=== PATIENT | male | born 1980 | race Caucasian/White ===

== ENCOUNTER 2017-02-12 08:10 | Outpatient (CLI) | payer BC ==
[~2017-02-12] VITALS: Ht 177.8 cm; Wt 90.9 kg
[2017-02-12] VITALS (10 sets, daily range): BP systolic 114–134; BP diastolic 72–86
[~2017-02-12 08:10] MED LIST: ACHD5005 PO; CRS350T PO; CYCL10TA9 PO; DIPH-424 PO; HYDR-2941 PO; HYDR-3720 PO; HYDR1TAB PO; HYDR1TAB8 OP; IBP800T PO; MELO7.5T PO; METH4TAB PO; NAPR550T PO; OXYC-12 PO; PRD20T PO; PRD50T PO; SULF1TAB38 PO; ZLP10T PO
[2017-02-12 09:01] LABS: BASOPHILS % (AUTO) 0 % (0-10); EOSINOPHILS # (AUTO) 0.2 10^3/uL (0.0-0.3); EOSINOPHILS % (AUTO) 2 % (0-10); LYMPHOCYTES # (AUTO) 2.2 X 10^3 (1.0-4.0); LYMPHOCYTES % (AUTO) 31 % (12-44); MEAN CORPUSCULAR HEMOGLOBIN 31 PG (25-34); MEAN CORPUSCULAR HGB CONC 36 G/DL (32-36); MEAN CORPUSCULAR VOLUME 87 FL (80-99); MEAN PLATELET VOLUME 10.2 FL (7.4-10.4); MONOCYTES # (AUTO) 0.6 X 10^3 (0.0-1.0); MONOCYTES % (AUTO) 9 % (0-12); NEUTROPHILS # (AUTO) 4.1 X 10^3 (1.8-7.8); NEUTROPHILS % (AUTO) 58 % (42-75); PLATELET COUNT 233 10^3/uL (130-400); RED BLOOD COUNT 4.88 10^6/uL (4.35-5.85); RED CELL DISTRIBUTION WIDTH 12.7 % (10.0-14.5); WHITE BLOOD COUNT 7.1 10^3/uL (4.3-11.0)
[2017-02-12] MEDS ORDERED: HYDROcodone/APAP 5 MG/325 MG (LORTAB) TAB ONE (11:27)
[2017-02-12] MEDS ORDERED: HYDROcodone/APAP 5 MG/325 MG (LORTAB) TAB PO ONE (11:30)
[2017-02-12] MEDS ORDERED: IOHEXOL 240 MGI/ML 20 ML (OMNIPAQUE) VIAL IV ONE (11:30)
--- NOTE | 2017-02-12 11:53 | Diagnostic Imaging Report ---
EXAMINATION: Fluoroscopic guided lumbar puncture with intrathecal contrast injection and myelogram performed. INDICATION: Back pain. FLUOROSCOPY TIME: 21 seconds CONSENT: Informed consent was obtained from the patient. The risks, benefits, potential complications and alternatives were reviewed and all questions answered to the patient's satisfaction. PROCEDURE: After sterile preparation and draping, 1% lidocaine was utilized for local anesthesia. Under fluoroscopic guidance, a 22-gauge spinal needle is advanced into the spinal canal at the level of L5/S1. Clear CSF is obtained. Under fluoroscopic visualization, 12 cc of intrathecal Omnipaque-240 is administered into the thecal sac. The patient tolerated the procedure well with no immediate complications. FINDINGS: Myelogram images demonstrate opacification of the thecal sac. There is anterior fusion hardware seen at L5/S1 level. IMPRESSION: Successful fluoroscopic guided intrathecal contrast injection with myelogram obtained and a lumbar CT myelogram to follow. Dictated by: Dictated on workstation # [id number]
[2017-02-12] MEDS ORDERED: HYDR-3812 PO (14:00)
[2017-02-12] MEDS ORDERED: DOXY25TA46 PO (14:00)
--- NOTE | 2017-02-12 15:42 | Pre-Procedure Progress Note ---
Pre-Procedure Progress Note H&P Reviewed The H&P was reviewed, patient examined and no changes noted. Date H&P Reviewed: Feb 12, 2017 Time H&P Reviewed: 09:00 Pre-Procedure Diagnosis: back pain COLBY JONES MD Feb 12, 2017 15:42
--- NOTE | 2017-02-12 17:01 | Diagnostic Imaging Report ---
PROCEDURE: CT lumbar spine with intrathecal contrast. TECHNIQUE: Multiple contiguous axial images were obtained through the lumbar spine after the intrathecal administration of contrast. Sagittal and coronal reformations were then performed. INDICATION: Back pain. FINDINGS: There is anterior fusion plate and screws along the L5/S1 level with osseous bridging around the disc cage across the interbody space seen. The posterior elements and facet joints are not fused. The alignment at the posterior spinal line is satisfactory. There is no pars defect. No spondylolisthesis at any level. There is no disc height loss. No posterior osteophytes are seen. There are subchondral cysts along the inferior endplate of L3 level probably related to a Schmorl's node. Small Schmorl's nodes along the inferior endplate of L2 is also seen. There is good opacification of the thecal sac. The cauda equina and the conus medullaris appear grossly unremarkable. L4/5: There is a mild disc bulge resulting in mild spinal canal stenosis reducing the AP dimension of the central canal to 8.5 mm. There is mild to moderate facet arthropathy. No significant lateral recess stenosis. L5/S1: There is solid fusion with no spinal canal stenosis. There is no foraminal narrowing seen at any level. IMPRESSION: 1. There is a diffuse disc bulge at L4/5 level resulting in mild spinal canal stenosis. 2. There is solid fusion of L5 and S1 vertebral bodies. Dictated by: Dictated on workstation # [id number]
== END 2017-02-12 15:00 ==
LOC: RAD 08:10 → SURG 12:45 → RAD 15:00
PROVIDERS: ATTEND Family Medicine
DX: M51.16 Intervertebral disc disorders with radiculopathy, lumbar region (principal); M48.06 Spinal stenosis, lumbar region; Z98.1 Arthrodesis status
CPT/HCPCS: 36415; 62284; 72132; 72265; 77002; 85025; 85610; 85730

== ENCOUNTER → 2017-07-01 | Outpatient (CLI) | payer BC ==
[~2017-07-01] VITALS: Ht 177.8 cm; Wt 90.9 kg
[~2017-07-01] MED LIST changes: +DOXY25TA46 PO; +HYDR-3812 PO; +HYDR-3816 PO
== END ==
LOC: PREOP 15:01
PROVIDERS: ATTEND Orthopaedic Surgery Orthopaedic Surgery of the Spine
DX: Z01.818 Encounter for other preprocedural examination (principal); M54.5 Low back pain

== ENCOUNTER 2017-07-03 11:17 | Day surgery (SDC) | payer BC ==
[~2017-07-03] VITALS: Ht 177.8 cm; Wt 90.9 kg
[2017-07-03 11:20] VITALS: BP 137/80
[2017-07-03] MEDS ORDERED: ceFAZolin 2 GM/50 ML NS 50 ML IV ONE (11:30)
[2017-07-03] MEDS: LACTATED RINGERS 1,000 ML IV PRN ×2 (12:38→15:10)
[2017-07-03] MEDS ORDERED: ONDANSETRON 4 MG/2 ML (SDV) Z0FRAN IV ONE (13:15)
[2017-07-03] MEDS ORDERED: SCOPOLAMINE 1.5 MG (TRANSDERM-SCOP) PATCH TOP ONE (13:15)
[2017-07-03] MEDS ORDERED: FAMOTIDINE 20MG/2ML IV (PEPCID) IV ONE (13:15)
[2017-07-03] MEDS ORDERED: GENTAMICIN 40 MG/ML 2 ML INJ SDV ONE (13:35)
[2017-07-03] MEDS ORDERED: BUP/EPI 0.5% 1:200,000 (MARCAINE) 10ML VIAL IJ ONE (13:35)
[2017-07-03] MEDS ORDERED: VANCOMYCIN 1000 MG/VIAL ONE (13:35)
[2017-07-03] MEDS ORDERED: ROCURONIUM 50 MG/5 ML (ZEMURON) VIAL IV ONE (13:46)
[2017-07-03] MEDS ORDERED: proPOfol 200 MG/20 ML (DIPRIVAN) VIAL IV ONE (13:46)
[2017-07-03] MEDS ORDERED: MIDAZOLAM 2 MG/2 ML (VERSED) VIAL ONE (13:46)
[2017-07-03] MEDS ORDERED: fentaNYL INJECTION 100 MCG/2 ML AMP ONE (13:47)
[2017-07-03] MEDS ORDERED: ceFAZolin 2 GM/NS 50 ML IV ONE (14:00)
[2017-07-03] MEDS ORDERED: SEVOFLURANE (ULTANE) 15 ML INHAL SOLN ONE (14:28)
[2017-07-03] MEDS ORDERED: SUGAMMADEX 100 MG/ML 5 ML (BRIDION) IV ONE (14:30)
--- NOTE | 2017-07-03 14:33 | Progress Note-Post Operative ---
Post-Operative Progess Note Surgeon (s)/Foundation Stage Teacher (s) Surgeon LAURIE CAMACHO MD Foundation Stage Teacher: DANIELE Ayala Pre-Operative Diagnosis LUMBAGO, Battery End of Life Post-Operative Diagnosis Battery End Of Life Lumbago Procedure & Operative Findings Date of Procedure 07/03/17 Procedure Performed/Findings Battery Exchange for SCS Anesthesia Type GETA Estimated Blood Loss Estimated blood loss (mL): min Specimens/Packing Specimens Removed none LAURIE CAMACHO MD Jul 03, 2017 2:33 pm
[2017-07-03] MEDS ORDERED: MEPERIDINE (DEMEROL) INJ 50 MG/ML ONE (14:47)
[2017-07-03] MEDS ORDERED: HYDROmorphone (DILAUDID) 2 MG/ML VIAL ONE (14:47)
[2017-07-03] MEDS: MEPERIDINE (DEMEROL) INJ 50 MG/ML IVP PRN ×2 (14:49→14:53)
[2017-07-03] MEDS: HYDROmorphone (DILAUDID) 2 MG/ML VIAL IVP PRN ×4 (15:00→15:30)
[2017-07-03] MEDS ORDERED: PROMETHAZINE INJ 25 MG/ML (PHENERGAN) AMP IVP PRN (15:00)
[2017-07-03] MEDS ORDERED: ONDANSETRON 4 MG/2 ML (SDV) Z0FRAN IVP PRN (15:00)
[2017-07-03] MEDS ORDERED: morphine INJ 10 MG/ML 1ML (SYR OR VIAL) IVP PRN (15:00)
[2017-07-03 15:50] VITALS: BP 131/86
[2017-07-03 16:20] VITALS: BP 129/80
[2017-07-03 16:50] VITALS: BP 118/83
--- NOTE | 2017-07-04 00:30 | OPERATIVE REPORT ---
DATE OF SERVICE: 07/03/2017 PREOPERATIVE DIAGNOSIS: Spinal cord stimulator battery end of life, battery failure. POSTOPERATIVE DIAGNOSIS: Spinal cord stimulator battery end of life, battery failure PROCEDURES PERFORMED: Exchange of spinal cord stimulator battery. DATE AND TIME OF SURGERY: Please see anesthesia record. SURGEON: Ellis Garces MD. COLOR BUFFER: YELITZA Ayala. ROLE OF FLIGHT COMMUNICATIONS OFFICER: Aid in retraction of the procedure and aid in wound closure. ANESTHESIA: General endotracheal. ESTIMATED BLOOD LOSS: Minimal. INTRAVENOUS FLUIDS: Please see anesthesia record. ANTIBIOTICS: Ancef. COMPLICATIONS: None. INDICATIONS FOR PROCEDURE: The patient is a 36-year-old male with previous stimulator several years ago. He has had charging issues at this point. The battery no longer charges and desires exchange of battery. Risks, benefits, alternatives discussed and she elected to proceed with operative treatment. DESCRIPTION OF PROCEDURE: The patient was taken to the preoperative holding area and brought back to the operative suite. After adequate induction of general anesthesia and preoperative antibiotics, placed prone on the Lalit table care with padding to all extremities, sterilely prepped and draped posterior lumbar spine. The battery site was opened, the old battery was removed, new battery was placed and it was functioning well. Wound was closed in layers. The patient transferred to recovery room in stable condition having tolerated the procedure well. Job ID: [id number] DocumentID: [id number] Dictated Date: 07/03/2017 14:32:06 Drum Plater Date: 07/04/2017 00:29:56 Dictated By: ELLIS GARCES MD
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
--- OUTSIDE RECORDS SUMMARY | 2017-07-04 09:36 | XMS REPORT | Clinical Summary ---
Author Author MD Nasrin, Kennedy [facility], [facility] Address [address] [place] [address] Phone Care Team Providers Care Director Information Security Name Role Phone MD Alexandra Ryan Unavailable Conditions or Problems Problem Name Problem Code Onset Date Status Entry Date Provider Comment Standard Description Annotate Spinal stenosis, lumbar region without neurogenic claudication 72244256 ( SNOMED CT) Active Shelli Leap Spinal stenosis of lumbar region Spinal stenosis, lumbar 29044753 (SNOMED CT) Active Nahed Kwon [facility] Spinal stenosis of lumbar region Medications Medication Instructions Start Date Stop Date Generic Name NDC Provider HYDROCODONE-ACETAMINOPHEN 7.5-325 MG TABS HYDROCODONE-ACETAMINOPHEN 34139006804 Evon Rojo CNA UNISOM TABS DOXYLAMINE SUCCINATE (SLEEP) TABS 32431253298 Evon Rojo CNA CLOBETASOL PROPIONATE LIQD CLOBETASOL PROPIONATE LIQD 61795563575 Evon Rojo CNA MOTRIN IB 800 MG [...] LUMBAR SPINE: REVIEW EMG/NCV. 05/15/17 LYUBOVSEBASTIÁNWALTER DIET BABY SITTER yes Dietary management education, guidance , and counseling (procedure) SMOK STATUS Former smoker Tobacco smoking status NHIS CARD RSK GRP No cardiac risk group Plan of Care Type Date Detail Pending order SEND LETTER TO REF MD Procedures Code Procedure Name Date Entry Date CPT-41602 Lumbar Spine 4-6 Views Vital Signs Date [...] 8302-2 Encounters Code Encounter Date Provider Facility CPT-78785 27056- [facility] Level III Kennedy Alexandra MD [facility], [facility] CPT-43022 96263- New Level III Kennedy Alexandra MD [facility], [facility] Social History Concept Description Observation Name Observation Value Units Start Date Alcohol use ETOH USE Yes Former smoker SMOK STATUS Former smoker Alcohol use ETOH USE Yes Former smoker SMOK STATUS Former smoker
== END 2017-07-03 16:50 | disposition home or self-care (01) ==
LOC: SDC 11:17
PROVIDERS: ATTEND Orthopaedic Surgery Orthopaedic Surgery of the Spine
DX: T85.199A Other mechanical complication of other implanted electronic stimulator of nervous system, initial encounter (principal); Z79.899 Other long term (current) drug therapy; Z88.1 Allergy status to other antibiotic agents; G62.9 Polyneuropathy, unspecified
CPT/HCPCS: 87081

== ENCOUNTER 2018-04-07 08:14 | Emergency (ER) | payer BC ==
[~2018-04-07] VITALS: Ht 177.8 cm; Wt 93.0 kg
[~2018-04-07 08:14] MED LIST changes: -DOXY25TA46 PO; +HYDR-34 PO; -HYDR-3812 PO; -HYDR-3816 PO; +UNISOM25 M1 PO
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
--- OUTSIDE RECORDS SUMMARY | 2018-04-07 08:29 | XMS REPORT | Continuity of Care Document ---
Author Author [facility] Organization [facility] Address Unknown Phone Unavailable Allergies Active Description Code Type Severity Reaction Onset Reported/Identified Relationship to Patient Clinical Status Yes NKDA N/A N/A Yes VANCOMYCIN (BULK) MILD SWOLLEN LIPS Yes vancomycin [id number] Drug Allergy Moderate facial swelling 07/01/2017 Medications Medication Packaging Start Date Stop Date Route Dosage Sig KETOROLAC VIAL INJ 60 MG/2CC (TORADOL VIAL) MG 01/25/2017 01/25/2017 [id number] Problems Date Dx Coded Attending Type Code [...] MD Ot 349.0 LUMBAR PUNCTURE REACTION 02/14/2014 MARIA G CRISOSTOMO, LEDA Solorio Ot 784.0 HEADACHE 06/05/2014 Ot 722.4 06/05/2014 [...] GONCALVES DO Ot 722.83 POSTLAMINECT SYND-LUMBAR 01/18/2017 MARYBETHBARON MAGGY VELAZQUEZ Ot 723.0 CERVICAL SPINAL STENOSIS 01/25/2017 Tito Tee 848.8 OTHER SPECIFIED SITES OF SPRAINS AND STRAINS 01/25/2017 Tito Tee S39.012A STRAIN OF MUSCLE, FASCIA AND TENDON OF LOWER BACK, INIT 02/08/2017 Ot 729.5 PAIN IN LIMB 02/08/2017 MAGGY GONCALVES DO Ot 338.4 CHRONIC PAIN SYNDROME 02/08/2017 MAGGY GONCALVES DO Ot 722.52 LUMB/LUMBOSAC DISC DEGEN 02/08/2017 MAGGY GONCALVES DO Ot 722.83 POSTLAMINECT SYND-LUMBAR 02/08/2017 MAGGY GONCALVES DO Ot 723.0 CERVICAL SPINAL STENOSIS 02/12/2017 TAE CRISOSTOMO, MATTHEW Art Ot M48.06 SPINAL STENOSIS, LUMBAR REGION 02/12/2017 TAE CRISOSTOMO, MATTHEW Art Ot M51.16 INTERVERTEBRAL DISC DISORDERS W RADICULO 02/12/2017 TAE CRISOSTOMO, MATTHEW Art Ot Z98.1 ARTHRODESIS STATUS 02/18/2017 MATTHEW STRONG MD Ot M48.06 SPINAL STENOSIS, LUMBAR REGION 02/18/2017 MATTHEW STRONG MD Ot M51.16 INTERVERTEBRAL DISC DISORDERS W RADICULO 02/18/2017 MATTHEW STRONG MD Ot Z98.1 ARTHRODESIS STATUS 02/20/2017 MATTHEW STRONG MD Ot M48.06 SPINAL STENOSIS, LUMBAR REGION 02/20/2017 MATTHEW STRONG MD Ot M51.16 INTERVERTEBRAL DISC DISORDERS W RADICULO 02/20/2017 MATTHEW STRONG MD Ot Z98.1 ARTHRODESIS STATUS 02/20/2017 Ot 729.5 PAIN IN LIMB 02/20/2017 MAGGY GONCALVES DO Ot 338.4 CHRONIC PAIN SYNDROME 02/20/2017 MAGGY GONCALVES DO Ot 722.52 LUMB/LUMBOSAC DISC DEGEN 02/20/2017 MAGGY GONCALVES DO Ot 722.83 POSTLAMINECT SYND-LUMBAR 02/20/2017 MAGGY GONCALVES DO Ot 723.0 CERVICAL SPINAL STENOSIS 02/21/2017 MATTHEW STRONG MD, Ot M48.06 SPINAL STENOSIS, LUMBAR REGION 02/21/2017 MATTHEW STRONG MD, Ot M51.16 INTERVERTEBRAL DISC DISORDERS W RADICULO 02/21/2017 MATTHEW STRONG MD, Ot Z98.1 ARTHRODESIS STATUS 02/23/2017 MATTHEW STRONG MD, Ot M48.06 SPINAL STENOSIS, LUMBAR REGION 02/23/2017 MATTHEW STRONG MD, Ot M51.16 INTERVERTEBRAL DISC DISORDERS W RADICULO 02/23/2017 MATTHEW STRONG MD, Ot Z98.1 ARTHRODESIS STATUS 07/03/2017 LAURIE CAMACHO MD, Ot G62.9 POLYNEUROPATHY, UNSPECIFIED 07/03/2017 LAURIE CAMACHO MD, Ot T85.199A [facility] COMPL OF IMPLNT ELECTRNC STIMULTR O 07/03/2017 LAURIE CAMACHO MD, Ot Z79.899 OTHER LONGTERM (CURRENT) DRUG THERAPY 07/03/2017 LAURIE CAMACHO MD, Ot Z88.1 ALLERGY STATUS TO OTHER ANTIBIOTIC AGENT 07/11/2017 LAURIE CAMACHO MD, Ot M54.5 LOW BACK PAIN 07/11/2017 LAURIE CAMACHO MD, Ot Z01.818 ENCOUNTER FOR OTHER PREPROCEDURAL EXAMIN Procedures There is no data. Results Test [...] poor plasma bycoagulation assay 27 s 24-35 Methicillin resistant Staphylococcus aureus (MRSA) screening culture - 12:25 Methicillin resistant Staphylococcus aureus (MRSA) screening culture NEG NRG Encounters ACCT No. Visit Date/Time Discharge Status Pt. Type Provider Facility Loc./Unit Complaint [id number] 07/03/2017 11:17:00 07/03/2017 16:50:00 DIS Outpatient LAURIE CAMACHO MD [facility] SDC LUMBAGO [id number] 07/01/2017 15:01:00 07/01/2017 23:59:59 CLS Outpatient LAURIE CAMACHO MD [facility] PREOP LUMBAGO [id number] 02/12/2017 08:10:00 02/12/2017 15:00:00 DIS Outpatient MATTHEW STRONG MD [facility] RAD S/P FUSION L4/L5, BULDGING DISC L3/L5 [id number] 02/14/2014 02:46:00 02/14/2014 04:45:00 DIS Emergency LEDA CUMMINS MD [facility] ER MIGRAINE [id number] 02/12/2014 09:58:00 02/12/2014 13:37:00 DIS Emergency CHUCK VIRK MD [facility] ER HEADACHE/DIZZINESS [id number] 09/11/2013 12:19:00 09/11/2013 13:01:00 DIS Emergency WALKER BELL MD [facility] ER BACK PAIN [id number] 08/21/2013 08:24:00 08/21/2013 23:59:59 CLS Outpatient SACHA MAGGY VELAZQUEZ [facility] RAD RADICULOPATHY [id number] 03/15/2013 08:24:00 03/15/2013 10:25:00 DIS Emergency ETHAN GONCALVES MD [facility] ER LOWER BACK PAIN [id number] 01/06/2013 15:00:00 01/06/2013 15:51:00 DIS Emergency ETHAN GONCALVES MD [facility] ER BACK PAIN [id number] 12/07/2012 10:16:00 12/07/2012 14:45:00 DIS Emergency LEDA CUMMINS MD [facility] ER ABCESS ON L GROIN AREA [id number] 09/17/2012 11:18:00 Document Registration [id number] 08/15/2012 09:23:00 Document Registration [id number] 07/29/2012 09:51:00 Document Registration [id number] 02/11/2012 14:11:00 Document Registration [id number] 02/08/2012 17:50:00 Document Registration [id number] 01/28/2012 01:12:00 Document Registration [id number] 09/01/2011 02:01:00 Document Registration [id number] 08/24/2010 10:07:00 Document Registration [id number] 08/21/2017 13:45:00 08/21/2017 23:59:59 CLS Outpatient [facility] [id number] 01/25/2017 08:43:00 01/25/2017 09:46:00 DIS Outpatient [facility] ER [id number] 01/25/2017 09:13:09 Document Registration [id number] 09/13/2017 15:25:23 09/13/2017 23: 59:59 CLS Outpatient [id number] 09/13/2017 15:25:12 09/13/2017 23: 59:59 CLS Outpatient [id number] 09/13/2017 15:24:39 09/13/2017 23: 59:59 CLS Outpatient [id number] 08/15/2017 08:40:35 08/15/2017 23: 59:59 CLS Outpatient [id number] 08/15/2017 08:40:32 08/15/2017 23: 59:59 CLS Outpatient [id number] 08/15/2017 08:40:21 08/15/2017 23: 59:59 CLS Outpatient [id number] 08/15/2017 08:40:16 08/15/2017 23: 59:59 CLS Outpatient [id number] 05/10/2017 08:50:38 05/10/2017 23: 59:59 CLS Outpatient [id number] 05/10/2017 08:50:24 05/10/2017 23: 59:59 CLS Outpatient [id number] 05/07/2017 09:08:11 05/07/2017 23: 59:59 CLS Outpatient [id number] 05/06/2017 15:35:54 05/06/2017 23: 59:59 CLS Outpatient [id number] 05/06/2017 14:35:28 05/06/2017 23: 59:59 CLS Outpatient [id number] 05/06/2017 14:24:54 05/06/2017 23: 59:59 CLS Outpatient [id number] 05/06/2017 14:24:40 05/06/2017 23: 59:59 CLS Outpatient [id number] 05/06/2017 14:23:12 05/06/2017 23: 59:59 CLS Outpatient [id number] 05/06/2017 14:23:11 05/06/2017 23: 59:59 CLS Outpatient [id number] 05/06/2017 14:22:58 05/06/2017 23: 59:59 CLS Outpatient [id number] 05/06/2017 14:21:28 05/06/2017 23: 59:59 CLS Outpatient [id number] 04/23/2017 10:35:13 04/23/2017 23: 59:59 CLS Outpatient [id number] 04/23/2017 10:34:16 04/23/2017 23: 59:59 CLS Outpatient [id number] 04/23/2017 10:34:03 04/23/2017 23: 59:59 CLS Outpatient [id number] 04/23/2017 10:31:36 04/23/2017 23: 59:59 CLS Outpatient [id number] 04/23/2017 10:31:35 04/23/2017 23: 59:59 CLS Outpatient [id number] 04/23/2017 10:31:20 04/23/2017 23: 59:59 CLS Outpatient [id number] 05/06/2017 14:35:00 Document Registration [id number] 05/06/2017 14:32:00 Document Registration
[2018-04-07] MEDS ORDERED: KETOROLAC 30 MG/ML VIAL IVP STA (09:31)
[2018-04-07] MEDS ORDERED: NS IV 1000 ML 1,000 ML IV ONE (09:31)
[2018-04-07 09:37] LABS: BASOPHILS % (AUTO) 0 % (0-10); EOSINOPHILS # (AUTO) 0.1 10^3/uL (0.0-0.3); EOSINOPHILS % (AUTO) 2 % (0-10); HEMATOCRIT 44 % (40-54); HEMOGLOBIN 16.4 G/DL (13.3-17.7); LYMPHOCYTES # (AUTO) 1.8 X 10^3 (1.0-4.0); LYMPHOCYTES % (AUTO) 28 % (12-44); MEAN CORPUSCULAR HEMOGLOBIN 33 PG (25-34); MEAN CORPUSCULAR HGB CONC 37 G/DL (32-36); MEAN CORPUSCULAR VOLUME 89 FL (80-99); MEAN PLATELET VOLUME 10.1 FL (7.4-10.4); MONOCYTES # (AUTO) 0.6 X 10^3 (0.0-1.0); MONOCYTES % (AUTO) 10 % (0-12); NEUTROPHILS # (AUTO) 3.7 X 10^3 (1.8-7.8); NEUTROPHILS % (AUTO) 60 % (42-75); PLATELET COUNT 221 10^3/uL (130-400); RED BLOOD COUNT 4.98 10^6/uL (4.35-5.85); RED CELL DISTRIBUTION WIDTH 12.7 % (10.0-14.5); WHITE BLOOD COUNT 6.2 10^3/uL (4.3-11.0)
[2018-04-07] MEDS ORDERED: ONDANSETRON 4 MG/2 ML (SDV) Z0FRAN IVP ONE (09:45)
--- NOTE | 2018-04-07 09:50 | ED Abdominal Pain ---
General Chief Complaint: Abdominal/GI Problems Stated Complaint: SIDE AND LOWER BACK PAIN Nursing Triage Note: PT STATES LAST NIGHT AROUND 20:00 HE BEGAN TO EXPERIENCE R FLANK PAIN WITH SOME NAUSEA. TODAY IS PRESENTING WITH INCREASED PAIN IN THE SAME LOCATION. Sepsis Screen: No Definite Risk (ETHAN PARADA STUDENT) History of Present Illness Date Seen by Provider: Apr 07, 2018 Time Seen by Provider: 09:10 Initial Comments Will (prefers to go by middle name) is a 37-year old male who presents to the ED this morning with the chief complaint of right flank pain beginning last evening at 20:00 while at rest. Patient describes the pain as constant, sharp, radiating occasionally down to the right groin, and currently rates an 8/10. Patient took 7.5mg of hydrocodone last night and oxycodone this morning, each brought mild temporary symptom resolution before pain intensity resumed. Patient denies previous injury or trauma to his right flank. Patient had two episodes last evening of burning with urination, but denies discharge or hematuria. Patient felt nauseated last evening and this morning. Patient currently has headache and intermittent chills, but denies fever, diaphoresis, abdominal pain, or vomiting. Patient denies personal history of UTI, nephrolithiasis, or other pathology, but has family history of kidney stones. Patient has chronic pedal paresthesias bilaterally since accident and L4 -5 spinal fusion surgery in 2011-. Patient says his acute pain today is unlike any associated pain he's had since spinal injury. Patient regularly takes 7.5mg hydrocodone b.i.d. for back pain, Unisom for sleep, and recently started a new topical skin treatment for his psoriasis. Patient is allergic to vancomycin, smokes about 1/2 ppd of cigarettes, and does not drink alcohol or use illicit drugs. Patient remarks he drinks soda "way too much." Patient works as a huitron/contractor. Patient's PCP is Dr. Strong. Timing/Duration: 12-24 Hours Severity/Quality: Severe, Sharp Location: Flank (right-sided) Radiation: Groin Activities at Onset: Rest Modifying Factors: Improves With Analgesics (7.5mg hydrocodone and oxycodone) Associated Symptoms: No Chest Pain; Fever/Chills (chills; no fever), Headache; No Shortness of Air (ETHAN PARADA STUDENT) Initial Comments Here with complaint of right flank pain that started last night. Describes it as sharp and radiating to the right groin. He is taking his medications and that has not helped. Denies any recent injury. Denies blood in his urine or stool. Timing/Duration: 12-24 Hours Severity/Quality: Moderate, Severe, Sharp Location: Flank (right-sided) Radiation: Groin Associated Symptoms: No Fever/Chills (chills; no fever), No Headache, No Nausea /Vomiting, No Shortness of Air (ETHAN GONCALVES MD) Allergies and Home Medications Allergies Coded Allergies: vancomycin (Unverified Adverse Reaction, Intermediate, facial swelling, itching, 07/01/17) Home Medications Doxylamine Succinate 25 Mg Tablet, 25 MG PO HS, (Reported) Hydrocodone Bit/Acetaminophen 1 Each Tablet, 1 EACH PO BID, (Reported) Patient Home Medication List Home Medication List Reviewed: Yes (ETHAN PARADA) Home Medication List Reviewed: Yes (ETHAN GONCALVES MD) Review of Systems Review of Systems Constitutional: chills; No diaphoresis, No fever EENTM: No Blurred Vision, No Double Vision Respiratory: Denies Cough, Denies Shortness of Air Cardiovascular: Denies Chest Pain, Denies Palpitations Gastrointestinal: Denies Abdominal Pain, Denies Constipated, Denies Diarrhea; Nausea; Denies Vomiting Genitourinary: Burning; Denies Discharge; Flank Pain (right-sided); Denies Hematuria, Denies Pain Musculoskeletal: back pain; No neck pain Skin: other (psoriasis) Psychiatric/Neurological: Paresthesia (pedal, bilaterally, but more pronounced in rt foot) Endocrine: Denies Excessive Sweating, Denies Intolerance to Cold, Denies Intolerance to Heat (ETHAN PARADA STUDENT) Constitutional: see HPI; No fever, No weakness EENTM: No Symptoms Reported Respiratory: No Symptoms Reported (ETHAN GONCALVES MD) All Other Systems Reviewed Negative Unless Noted: Yes (ETHAN GONCALVES MD) Past Bpdemkg-Ztupab-Rsyhmp Hx Past Med/Social Hx: Reviewed Nursing Past Med/Soc Hx (ETHAN GONCALVES MD) Patient Social History Alcohol Use: Denies Use Recreational Drug Use: No Smoking Status: Current Everyday Smoker Type Used: Cigarettes (2 ppd) Former Smoker, Quit: Jul 01, 2013 Recent Foreign Travel: No Contact w/Someone Who Travel: No Recent Infectious Disease Expo: No Recent Hopitalizations: No (ETHAN PARADA) Immunizations Up To Date Date of Pneumonia Vaccine: Aug 15, 2012 Date of Influenza Vaccine: May 15, 2012 (ETHAN PARADA) Seasonal Allergies Seasonal Allergies: Yes (MILD) (ETHAN PARADA) Past Medical History Surgeries: Yes (KNEE, SHOULDER, BACK/neurostimulator, LUMBAR FUSION) Respiratory: No Cardiac: No Neurological: No Reproductive Disorders: No Sexually Transmitted Disease: No HIV/AIDS: No Genitourinary: No Gastrointestinal: No Musculoskeletal: Yes (2011) Arthritis, Back Injury, Chronic Back Pain, Gout Endocrine: No Loss of Vision: Denies Hearing Impairment: Denies Cancer: No Psychosocial: No Integumentary: Yes Psoriasis Blood Disorders: No Adverse Reaction/Blood Tranf: No (N/A) (ETHAN PARADA) Family Medical History Reviewed Nursing Family Hx (ETHAN GONCALVES MD) No Pertinent Family Hx, Cancer, Other Conditions/Hx (nephrolithiasis) (ETHAN PARADA) Physical Exam Vital Signs Vital Signs - First Documented 04/07/18 08:20 Temp 98.6 Pulse 72 Resp 20 B/P (MAP) 141/91 (108) Pulse Ox 100 O2 Delivery Room Air (ETHAN GONCALVES MD) Vital Signs Capillary Refill : Less Than 3 Seconds (ETHAN PARADA) Height/Weight/BMI Height: 5'10.00" Weight: 205lbs. 8.0oz. 92.690410er; 28.8 BMI Method:Stated General Appearance: no apparent distress HEENT: No scleral icterus (R), No scleral icterus (L) Neck: non-tender, supple Respiratory: lungs clear, no respiratory distress, no accessory muscle use; No rales, No rhonchi, No wheezing Cardiovascular: regular rate, rhythm, no murmur Gastrointestinal: non tender, soft; No guarding, No rebound, No tenderness Extremities: non-tender; No calf tenderness, No pedal edema, No swelling; other (5/5 motor strength UE and LE, bilaterally) Back: CVA tenderness (R); No CVA tenderness (L); vertebral tenderness (lumbar region) Neurologic/Psychiatric: alert, normal mood/affect Skin: No diaphoresis; other (psoriasis, left proximal posterior forearm) ( ETHAN PARADA MED STUDENT) General Appearance: WD/WN, no apparent distress HEENT: PERRL/EOMI, pharynx normal Neck: non-tender, supple Gastrointestinal: non tender, soft Extremities: normal range of motion, non-tender, normal inspection Back: CVA tenderness (R); No CVA tenderness (L); vertebral tenderness (lumbar region right side) Neurologic/Psychiatric: alert, normal mood/affect Skin: normal color, warm/dry (ETHAN GONCALVES MD) Progress/Results/Core Measures Results/Orders Lab Results Laboratory Tests Test 04/07/18 08:50 04/07/18 10:03 Range/Units White Blood Count 6.2 4.3-11.0 10^3/uL Red Blood Count 4.98 4.35-5.85 10^6/uL Hemoglobin 16.4 13.3-17.7 G/DL Hematocrit 44 40-54 % Mean Corpuscular Volume 89 80-99 FL Mean Corpuscular Hemoglobin 33 25-34 PG Mean Corpuscular Hemoglobin Concent 37 H 32-36 G/DL Red Cell Distribution Width 12.7 10.0-14.5 % Platelet Count 221 130-400 10^3/uL Mean Platelet Volume 10.1 7.4-10.4 FL Neutrophils (%) (Auto) 60 42-75 % Lymphocytes (%) (Auto) 28 12-44 % Monocytes (%) (Auto) 10 0-12 % Eosinophils (%) (Auto) 2 0-10 % Basophils (%) (Auto) 0 0-10 % Neutrophils # (Auto) 3.7 1.8-7.8 X 10^3 Lymphocytes # (Auto) 1.8 1.0-4.0 X 10^3 Monocytes # (Auto) 0.6 0.0-1.0 X 10^3 Eosinophils # (Auto) 0.1 0.0-0.3 10^3/uL Basophils # (Auto) 0.0 0.0-0.1 10^3/uL Sodium Level 140 135-145 MMOL/L Potassium Level 3.9 3.6-5.0 MMOL/L Chloride Level 103 98-107 MMOL/L Carbon Dioxide Level 27 21-32 MMOL/L Anion Gap 10 5-14 MMOL/L Blood Urea Nitrogen 12 7-18 MG/DL Creatinine 1.14 0.60-1.30 MG/DL Estimat Glomerular Filtration Rate > 60 BUN/Creatinine Ratio 11 Glucose Level 115 H 70-105 MG/DL Calcium Level 9.9 8.5-10.1 MG/DL Corrected Calcium 8.5-10.1 MG/DL Total Bilirubin 0.4 0.1-1.0 MG/DL Aspartate Amino Transf (AST/SGOT) 27 5-34 U/L Alanine Aminotransferase (ALT/SGPT) 44 0-55 U/L Alkaline Phosphatase 28 L 40-136 U/L Total Protein 7.0 6.4-8.2 GM/DL Albumin 4.6 H 3.2-4.5 GM/DL Urine Color YELLOW Urine Clarity CLEAR Urine pH 7 5-9 Urine Specific [place] 1.010 L 1.016-1.022 Urine Protein NEGATIVE NEGATIVE Urine Glucose (UA) NEGATIVE NEGATIVE Urine Ketones NEGATIVE NEGATIVE Urine Nitrite NEGATIVE NEGATIVE Urine Bilirubin NEGATIVE NEGATIVE Urine Urobilinogen NORMAL NORMAL MG/DL Urine Leukocyte Esterase NEGATIVE NEGATIVE Urine RBC (Auto) NEGATIVE NEGATIVE Urine RBC NONE /HPF Urine WBC RARE /HPF Urine Squamous Epithelial Cells 0-2 /HPF Urine Crystals NONE /LPF Urine Bacteria NEGATIVE /HPF Urine Casts NONE /LPF Urine Mucus NEGATIVE /LPF Urine Culture Indicated NO (ETHAN GONCALVES MD) My Orders Orders - ETHAN GONCALVES MD Ua Culture If Indicated (04/07/18 09:31) Cbc With Automated Diff (04/07/18 09:31) Comprehensive Metabolic Panel (04/07/18 09:31) Saline Lock/Iv-Start (04/07/18 09:31) Ns Iv 1000 Ml (Sodium Chloride 0.9%) (04/07/18 09:31) Ondansetron Injection (Zofran Injectio (04/07/18 09:45) Ketorolac Injection (Toradol Injection) (04/07/18 09:31) Ct Abd/Pelvis Wo(Kidney Stone) (04/07/18 10:04) Hydrocodone/Apap 10/325 Tablet (Lortab 1 (04/07/18 11:30) (ETHAN GONCALVES MD) Medications Given in ED Current Medications Medications Dose Ordered Sig/Carlos Route Start Time Stop Time Status Last Admin Dose Admin Ondansetron HCl 4 mg ONCE ONCE IVP 04/07/18 09:45 04/07/18 09:46 DC 04/07/18 10:02 4 MG Sodium Chloride 1,000 ml @ 0 mls/hr Q0M ONCE IV 04/07/18 09:31 04/07/18 09:33 DC 04/07/18 10:02 1,000 MLS/HR (ETHAN GONCALVES MD) Vital Signs/I&O 04/07/18 08:20 Temp 98.6 Pulse 72 Resp 20 B/P (MAP) 141/91 (108) Pulse Ox 100 O2 Delivery Room Air (ETHAN GONCALVES MD) Blood Pressure Mean: 108 Progress Progress Note : Progress Note Seen and examined. CBC to check for possible inflammatory process, CMP to assess kidney and electrolyte status, and UA to check for possible UTI. Abdomen and pelvis CT without contrast to check for possible urinary tract/kidney stones. (ETHAN PARADA MED STUDENT) Progress Note : Progress Note I have seen and evaluated the patient and agree with above except as indicated. I have directed the plan of care. Patient will get IV, labs, UA. CT abdomen pelvis ordered. Monitor patient. 1200: Hydrocodone 10/325 one tab by mouth given. Patient will continue his outpatient therapy and follow up with Dr. Strong for adjustments of his meds as needed. He will consider ibuprofen therapy although this is started stomach. We did discuss outpatient over-the- counter omeprazole or famotidine. He'll consider that. Discharged home with return precautions. Patient verbalize understanding instructions and agreement with plan. (ETHAN GONCALVES MD) Departure Impression Primary Impression: Low back pain Qualified Codes: M54.5 - Low back pain Disposition: 01 HOME, SELF-CARE Condition: Stable Departure-Patient Inst. Decision time for Depature: 12:06 (ETHAN GONCALVES MD) Referrals: MATTHEW STRONG MD (PCP/Family) Primary Care Physician Patient Instructions: Low Back Pain (DC) Add. Discharge Instructions: All discharge instructions reviewed with patient and/or family. Voiced understanding. Continue home meds as previously prescribed. Make appointment with Dr. Strong this week for recheck and further evaluation. You may take ibuprofen 600-800 mg every 8 hours as needed for pain. You may take omeprazole 20 mg daily to reduce stomach upset with this. Make sure you take the ibuprofen with a full glass of water or with food to decrease stomach upset. Return for worse pain, fever, vomiting, weakness, breathing problems or other concerns as needed. Copy Copies To 1: MATTHEW STRONG MD, TIMOTHY J MED STUDENT Apr 07, 2018 09:50 ETHAN GONCALVES MD Apr 07, 2018 12:05
[2018-04-07 09:51] LABS: ALANINE AMINOTRANSFERASE 44 U/L (0-55); ALBUMIN 4.6 GM/DL (3.2-4.5); ALKALINE PHOSPHATASE 28 U/L (40-136); BILIRUBIN,TOTAL 0.4 MG/DL (0.1-1.0); BUN/CREATININE RATIO 11; CALCIUM 9.9 MG/DL (8.5-10.1); CARBON DIOXIDE 27 MMOL/L (21-32); CHLORIDE 103 MMOL/L (98-107); CREATININE SERUM 1.14 MG/DL (0.60-1.30); GFR ESTIMATED > 60; GLUCOSE 115 MG/DL (70-105); POTASSIUM 3.9 MMOL/L (3.6-5.0); SODIUM 140 MMOL/L (135-145)
[2018-04-07 10:28] LABS: BILIRUBIN,URINE NEGATIVE (NEGATIVE); CLARITY,URINE CLEAR; COLOR,URINE YELLOW; GLUCOSE, URINE (UA) NEGATIVE (NEGATIVE); KETONES,URINE NEGATIVE (NEGATIVE); LEUKOCYTE ESTERASE ,URINE NEGATIVE (NEGATIVE); NITRITE,URINE NEGATIVE (NEGATIVE); PH,URINE 7 (5-9); PROTEIN,URINE NEGATIVE (NEGATIVE); UROBILINOGEN,URINE NORMAL (NORMAL)
[2018-04-07 10:35] LABS: BACTERIA,URINE NEGATIVE /HPF; SQUAMOUS EPITHELIAL CELL,UR 0-2 /HPF; WBC,URINE RARE /HPF
--- NOTE | 2018-04-07 10:59 | Diagnostic Imaging Report ---
PROCEDURE: CT urinary tract, rule out kidney stone. TECHNIQUE: Multiple contiguous axial images were obtained through the abdomen and pelvis without the use of intravenous contrast. INDICATION: Right-sided abdominal and low back pain. CORRELATION STUDY: 01/27/2012 FINDINGS: LOWER THORAX: Clear. LIVER: ] Tiny, 3 mm low-density foci centrally liver superiorly. 9 mm rounded low-density foci of subcapsular region medial right lobe of the liver. GALLBLADDER: Present and unremarkable. No bile duct dilatation. SPLEEN: Unremarkable. PANCREAS: Unremarkable. ADRENAL GLANDS: Unremarkable. KIDNEYS: There is very questionable 1 cm slightly low density foci in the central anterior inferior pole right kidney. Kidneys and collecting systems otherwise unremarkable. No calcification. The ureters appear unremarkable and nonobstructed. ABDOMINAL AORTA: Unremarkable, nonaneurysmal. GASTROINTESTINAL TRACT: Few scattered colonic diverticuli are present. No inflammation or evidence for acute diverticulitis. Normal appendix in the retrocecal location right lower quadrant. Mild severity fecal retention. URINARY BLADDER: Unremarkable. REPRODUCTIVE: Prostate gland unremarkable. OSSEOUS STRUCTURES: Solid fusion L5-S1 level with anterior plate and screws. Presence of a thoracic spine stimulator leads coursing into the spinal canal at the T10-T11 level. OTHER: None. IMPRESSION: 1. Negative for acute abnormality of the abdomen or pelvis. 2. Very questionable density anterior-inferior pole right kidney. This may very well be artifactual in nature. However, consideration for nonemergent followup renal ultrasound would be recommended. Dictated by: Dictated on workstation # [id number]
[2018-04-07] MEDS ORDERED: HYDROcodone/APAP 10 MG/325 MG (LORTAB) TAB PO STA (11:30)
[2018-04-07 12:20] VITALS: BP 123/85
== END 2018-04-07 12:20 | disposition home or self-care (01) ==
LOC: EDUNIT# 08:14 → ER 08:15
DX: M54.5 Low back pain (principal); R10.31 Right lower quadrant pain; M10.9 Gout, unspecified; F17.210 Nicotine dependence, cigarettes, uncomplicated; Z88.0 Allergy status to penicillin; Z98.1 Arthrodesis status
CPT/HCPCS: 36415; 74176; 80053; 81000; 85025; 96361; 96374; 96375

== ENCOUNTER → 2018-04-09 | Outpatient (CLI) | payer BC ==
--- NOTE | 2018-04-09 13:45 | Diagnostic Imaging Report ---
PROCEDURE: US Renal Bilateral. INDICATION: Right flank pain. Questionable finding of the right kidney on recent renal colic CT. TECHNIQUE: Multiple real-time grayscale sonographic images were obtained of the kidneys. COMPARISON: CT 04/07/2018 FINDINGS: RIGHT KIDNEY: 11.3 x 4.2 x 5.1 cm. LEFT KIDNEY: 12.7 x 4.6 x 5.0 cm. The kidneys have an unremarkable appearance. There is relatively normal echotexture of the renal parenchyma. No hydronephrosis. The questionable abnormality of the right kidney on CT imaging is not appreciated on ultrasound. URINARY BLADDER: Not imaged. IMPRESSION: 1. Unremarkable renal sonogram. The questionable abnormality of the right kidney on CT imaging is not appreciated on ultrasound. Particularly if symptoms persist, postcontrast CT imaging recommended. Dictated by: Dictated on workstation # [id number]
== END ==
LOC: RAD 11:24
PROVIDERS: ATTEND Family Medicine
DX: R10.9 Unspecified abdominal pain (principal)
CPT/HCPCS: 76770

== ENCOUNTER → 2019-08-04 | Outpatient (CLI) | payer OTHER ==
--- NOTE | 2019-08-04 15:32 | Diagnostic Imaging Report ---
INDICATION: Right lower quadrant pain. EXAMINATION: KUB at 1:17 p.m. FINDINGS: Patient has a dorsal column stimulator projecting over T9-T10. Patient has had a fusion of L5-S1. Bowel gas pattern is normal. There are no pathologic masses or calcifications. IMPRESSION: No acute abnormalities in the abdomen. Dictated by: Dictated on workstation # [id number]
== END ==
LOC: RAD 13:04
PROVIDERS: ATTEND Family Medicine
DX: R10.31 Right lower quadrant pain (principal)
CPT/HCPCS: 74018